=== PATIENT | female | born 1960 | race Caucasian/White ===

== ENCOUNTER → 2019-08-04 | Emergency (ER) | payer OTHER ==
[~2019-08-04] VITALS: Ht 160 cm; Wt 110.0 kg
[~2019-08-04] MED LIST: ACET-1059 PO; LIDOcaine 1% W/epiNEPHrine 1:100,000 20ml vial ONE; ondansetron/PF 4mg/2ml inj IV ONE; propofol 10mg/ml 20ml vial IV ONE
--- NOTE | 2019-08-04 15:35 | NUR ---
PAGED RT FOR MOD. SEDATION
--- NOTE | 2019-08-04 16:31 | NUR ---
Intra Moderate sedation: propofol 40mg given by Mode CHAPMAN at 1558 and as follows: propofol 20mg at 1600 propofol 10mg at 1601 propofol 10mg at 1602 propofol 20mg at 1604 propofol 20mg at 1605 propofol 10mg at 1606 propofol 20mg at 1607 propofol 30mg at 1608 propofol 20mg at 1610 propofol 30mg at 1617 1618: orthophotography technician at bedside propofol 40mg at 1619 propofol 30mg at 1620 propofol 30mg at 1625 1627 end of procedure
[2019-08-04 16:46] VITALS: BP 133/81
== END | disposition home or self-care (01) ==
LOC: ER 13:08
DX: S52.591A Other fractures of lower end of right radius, initial encounter for closed fracture (principal); F41.9 Anxiety disorder, unspecified; Z90.710 Acquired absence of both cervix and uterus; Z90.49 Acquired absence of other specified parts of digestive tract; Z88.0 Allergy status to penicillin; Z79.899 Other long term (current) drug therapy; W01.0XXA Fall on same level from slipping, tripping and stumbling without subsequent striking against object, initial encounter; Y93.89 Activity, other specified; Y92.89 Other specified places as the place of occurrence of the external cause; Y99.8 Other external cause status
CPT/HCPCS: 25605; 73100; 93005; 96374; 99152; 99153; 99285; J2405; 94760

== ENCOUNTER 2019-08-21 10:30 | Day surgery (SDC) | payer OTHER ==
[2019-08-21] VITALS (7 sets, daily range): BP systolic 118–152; BP diastolic 70–97
[~2019-08-21] VITALS: Ht 165.1 cm; Wt 118.6 kg
[~2019-08-21 10:30] MED LIST changes: -ACET-1059 PO; +LEVO150T61 PO; -LIDOcaine 1% W/epiNEPHrine 1:100,000 20ml vial ONE; +VENL-191 PO; +clindamycin 600mg/D5W 50ml 50 ML IV ONE; +famotidine 20mg tablet PO ONE; -ondansetron/PF 4mg/2ml inj IV ONE; -propofol 10mg/ml 20ml vial IV ONE; +ringers solution, lacted 1,000 ML IV SCH
[2019-08-21] MEDS ORDERED: ringers solution, lacted 1,000 ML IV SCH (11:14)
[2019-08-21] MEDS ORDERED: proCHLORperazine 10 MG/2 ml inj IV PRN (11:15)
[2019-08-21] MEDS ORDERED: morphine 4 MG/ML inj SYRINge IV PRN (11:15)
[2019-08-21] MEDS ORDERED: morphine 2 MG/ML inj. syringe IV PRN (11:15)
[2019-08-21] MEDS ORDERED: meperidine/PF 25mg/ml syringe IV PRN ×3 (11:15)
[2019-08-21] MEDS ORDERED: ondansetron/PF 4mg/2ml inj IV PRN (11:15)
[2019-08-21 12:11] LABS: BASOPHILS # (AUTO) 0.1 X10'3 (0-0.2); BASOPHILS % (AUTO) 0.9 % (0-1); EOSINOPHILS # (AUTO) 0.2 X10'3 (0-0.9); EOSINOPHILS % (AUTO) 2.5 % (0-6); LYMPHOCYTES # (AUTO) 2.1 X10'3 (1.1-4.8); LYMPHOCYTES % (AUTO) 32.8 % (21-51); MEAN CORPUSCULAR HEMOGLOBIN 29.8 PG (27.0-31.0); MEAN CORPUSCULAR HGB CONC 33.8 g/dL (33.0-36.5); MEAN CORPUSCULAR VOLUME 88.2 FL (78-98); MEAN PLATELET VOLUME 7.3 FL (7.4-10.4); MONOCYTES # (AUTO) 0.4 X10'3 (0-0.9); MONOCYTES % (AUTO) 6.1 % (2-12); NEUTROPHILS # (AUTO) 3.7 X10'3 (1.8-7.7); NEUTROPHILS % (AUTO) 57.7 % (42-75); PRE OP HEMATOCRIT 38.3 % (35.0-45.0); PRE OP PLATELET COUNT 402 X10'3 (140-440); RED BLOOD COUNT 4.34 X10'6 (4.20-5.60); RED CELL DISTRIBUTION WIDTH 13.6 % (11.5-14.5)
[2019-08-21] MEDS ORDERED: HYDROcodone/acetaminophen 5mg/325mg tablet PO ONE (12:15)
[2019-08-21 12:26] LABS: ALBUMIN 3.1 G/DL (3.4-5.0); ALBUMIN/GLOBULIN RATIO 0.9 (1.1-1.5); ALKALINE PHOSPHATASE 76 IU/L (46-116); BLOOD UREA NITROGEN 12 MG/DL (7-18); BUN/CREATININE RATIO 17.6 (6.6-38.0); CALCIUM 8.7 MG/DL (8.5-10.1); CHLORIDE 107 MMOL/L (99-107); CREATININE 0.68 MG/DL (0.40-0.90); PRE OP ALT 26 U/L (30-65); PRE OP ANION GAP 8 (8-16); PRE OP AST 17 U/L (10-37); PRE OP BILIRUB, TOTAL 0.3 MG/DL (0.0-1.0); PRE OP GLUCOSE 81 MG/DL (70-104); PRE OP POTASSIUM 3.9 MMOL/L (3.4-5.1); PRE OP SODIUM 142 MMOL/L (135-145); TOTAL CARBON DIOXIDE 27.5 MMOL/L (24-32); TOTAL PROTEIN 6.4 G/DL (6.4-8.2); eGFR 89 ML/MIN
[2019-08-21] MEDS ORDERED: BUPIVAcaine/PF 2.5 mg/ml (0.25%) 30ml vial ONE (12:56)
[2019-08-21] MEDS ORDERED: desflurane 240ml liquid inh. IH ONE (13:30)
[2019-08-21] MEDS ORDERED: ondansetron/PF 4mg/2ml inj ONE (13:30)
[2019-08-21] MEDS ORDERED: dexamethasone sod phosphate 10mg/ml inj ONE (13:30)
[2019-08-21] MEDS ORDERED: fentaNYL/PF 50MCG/1 ML 2ML syringe ONE (13:31)
[2019-08-21] MEDS ORDERED: midazolam 2 mg/2 ml injection ONE ×2 (13:31→13:32)
[2019-08-21] MEDS ORDERED: propofol inj 20 ML IV ONE (13:52)
[2019-08-21] MEDS ORDERED: LIDOcaine 2% (20mg/ml) 5ml vial ONE (13:52)
[2019-08-21] MEDS ORDERED: ROPIVAcaine 0.5% (5mg/ml) 30ml vial ONE (13:58)
--- NOTE | 2019-08-21 14:58 | NUR ---
RECEIVED FROM OR VIA [facility] ACCOMPANIED BY ANESTHESIOLOGIST DR FONTANEZ, REPORT GIVEN. PT DROWSY BUT AWAKENS EASILY AND DENIES PAIN AT THIS TIME. RUE DRESSING CDI, RUE ELEVATED AND ICE APPLIED. GOOD CAP REFILL, SKIN PINK AND WARM, 20 GAUGE PIV L WRIST PATENT AND RUNNING LR AT 100 ML/HR. RUE UNABLE TO MOVE DT AXILLARY BLOCK. RESTING COMFORTABLY
--- NOTE | 2019-08-21 15:58 | NUR ---
TOLERATING FLUIDS, ABLE TO WALK AND VOID, TOLERATING FLUIDS, VSS, 20 GAUGE PIV R WRIST DC/D CATH TIP INTACT. DISCHARGE INSTRUCTIONS GIVEN AND PT VERBALIZED UNDERSTANDING. TRANSPORTED VIA WHEELCHAIR TO DAUGHTER IN PRIVATE VEHICLE TO HOME.
== END 2019-08-21 15:58 | disposition home or self-care (01) ==
LOC: PAS 10:30
PROVIDERS: ATTEND Orthopaedic Surgery Hand Surgery
DX: S52.571A Other intraarticular fracture of lower end of right radius, initial encounter for closed fracture (principal); G56.01 Carpal tunnel syndrome, right upper limb; G89.18 Other acute postprocedural pain; G47.33 Obstructive sleep apnea (adult) (pediatric); F41.9 Anxiety disorder, unspecified; E66.9 Obesity, unspecified; Z68.41 Body mass index [BMI] 40.0-44.9, adult; Z88.0 Allergy status to penicillin; Z79.899 Other long term (current) drug therapy; Z90.710 Acquired absence of both cervix and uterus; Z98.84 Bariatric surgery status; Z98.890 Other specified postprocedural states; W01.0XXA Fall on same level from slipping, tripping and stumbling without subsequent striking against object, initial encounter; Y93.89 Activity, other specified; Y92.89 Other specified places as the place of occurrence of the external cause; Y99.8 Other external cause status
CPT/HCPCS: 25608; 36415; 64417; 64721; 80053; 82948; 85025; A6222; C1713; J1100; J2001; J2250; J2405; J2704; J3010; J3490; J7120; A4215; A4618; A6449; A7000; J2795

== ENCOUNTER 2021-02-06 14:37 | Emergency (ER) | payer BC, OTHER ==
[~2021-02-06] VITALS: Ht 165.1 cm; Wt 113.6 kg
[~2021-02-06 14:37] MED LIST changes: -clindamycin 600mg/D5W 50ml 50 ML IV ONE; -famotidine 20mg tablet PO ONE; -ringers solution, lacted 1,000 ML IV SCH
[2021-02-06 15:03] LABS: BASOPHILS # (AUTO) 0.1 X10'3 (0-0.2); BASOPHILS % (AUTO) 0.6 % (0-1); EOSINOPHILS # (AUTO) 0.1 X10'3 (0-0.9); EOSINOPHILS % (AUTO) 1.4 % (0-6); HEMATOCRIT 39.1 % (35.0-45.0); HEMOGLOBIN 13.2 g/dl (12.0-16.0); LYMPHOCYTES # (AUTO) 2.4 X10'3 (1.1-4.8); LYMPHOCYTES % (AUTO) 28.2 % (21-51); MEAN CORPUSCULAR HEMOGLOBIN 28.3 PG (27.0-31.0); MEAN CORPUSCULAR HGB CONC 33.6 g/dL (33.0-36.5); MEAN CORPUSCULAR VOLUME 84.3 FL (78-98); MEAN PLATELET VOLUME 7.6 FL (7.4-10.4); MONOCYTES # (AUTO) 0.6 X10'3 (0-0.9); MONOCYTES % (AUTO) 6.6 % (2-12); NEUTROPHILS # (AUTO) 5.3 X10'3 (1.8-7.7); NEUTROPHILS % (AUTO) 63.2 % (42-75); PLATELET COUNT 422 X10'3 (140-440); RED BLOOD COUNT 4.64 X10'6 (4.20-5.60); RED CELL DISTRIBUTION WIDTH 13.1 % (11.5-14.5); WHITE BLOOD COUNT 8.4 X10'3 (4.5-11.0)
[2021-02-06 15:18] LABS: ALANINE AMINOTRANSFERASE 34 U/L (12-78); ALBUMIN 3.4 G/DL (3.4-5.0); ALBUMIN/GLOBULIN RATIO 0.9 (1.1-1.5); ALKALINE PHOSPHATASE 109 IU/L (46-116); ANION GAP 10 (8-16); ASPARTATE AMINO TRANSFERASE 22 U/L (10-37); BILIRUBIN,TOTAL 0.3 MG/DL (0.1-1.0); BLOOD UREA NITROGEN 19 MG/DL (7-18); BUN/CREATININE RATIO 25.3 (6.6-38.0); CALCIUM 9.3 MG/DL (8.5-10.1); CHLORIDE 104 MMOL/L (99-107); CREATININE 0.75 MG/DL (0.40-0.90); GLUCOSE 154 MG/DL (70-104); POTASSIUM 4.1 MMOL/L (3.5-5.1); SODIUM 140 MMOL/L (135-145); TOTAL CARBON DIOXIDE 26.4 MMOL/L (24-32); TOTAL PROTEIN 7.3 G/DL (6.4-8.2); eGFR 79 ML/MIN
[2021-02-06 16:08] LABS: LIPASE 64 U/L (73-393)
[2021-02-06 17:50] LABS: MAGNESIUM 2.2 MG/DL (1.5-2.4)
[2021-02-06 17:57] VITALS: BP 145/88
[2021-02-06] MEDS ORDERED: LIDOcaine Viscous 15ml cup MM ONE (18:05)
[2021-02-06] MEDS ORDERED: sucralfate 1gm/10ml UD suspension PO STA (18:05)
[2021-02-06] MEDS ORDERED: mag hydrox/Alum hydrox/simeth 30ml oral suspension PO ONE (18:05)
[2021-02-06] MEDS ORDERED: SUCR1TAB34 PO (18:09)
== END 2021-02-06 18:22 | disposition home or self-care (01) ==
LOC: ER 14:38
DX: R07.89 Other chest pain (principal); K21.9 Gastro-esophageal reflux disease without esophagitis; Z88.0 Allergy status to penicillin; Z79.899 Other long term (current) drug therapy; Z90.710 Acquired absence of both cervix and uterus; Z98.84 Bariatric surgery status
CPT/HCPCS: 36415; 71045; 80053; 83690; 83735; 83880; 84484; 85025; 93005; 99285

== ENCOUNTER 2022-07-10 08:15 | Inpatient (IN) | payer BC ==
[2022-07-02 12:33] LABS: BASOPHILS % (AUTO) 0.5 % (0-1); EOSINOPHILS # (AUTO) 0.1 X10'3 (0-0.9); EOSINOPHILS % (AUTO) 0.7 % (0-6); MEAN CORPUSCULAR HEMOGLOBIN 29.4 PG (27.0-31.0); MEAN CORPUSCULAR HGB CONC 33.6 g/dL (33.0-36.5); MEAN CORPUSCULAR VOLUME 87.6 FL (78-98); MEAN PLATELET VOLUME 7.4 FL (7.4-10.4); MONOCYTES # (AUTO) 0.5 X10'3 (0-0.9); MONOCYTES % (AUTO) 6.7 % (2-12); NEUTROPHILS % (AUTO) 66.1 % (42-75); PRE OP HEMATOCRIT 43.1 % (35.0-45.0); PRE OP HEMOGLOBIN 14.5 g/dL (12.0-16.0); PRE OP PLATELET COUNT 359 X10'3 (140-440); RED BLOOD COUNT 4.92 X10'6 (4.20-5.60); RED CELL DISTRIBUTION WIDTH 14.3 % (11.5-14.5)
[2022-07-02 12:38] LABS: PRE OP PROTIME 10.4 SECONDS (9.0-12.0)
[2022-07-02 12:48] LABS: ALBUMIN 3.4 G/DL (3.4-5.0); ALBUMIN/GLOBULIN RATIO 0.9 (1.1-1.5); ALKALINE PHOSPHATASE 90 IU/L (46-116); BLOOD UREA NITROGEN 14 MG/DL (7-18); CALCIUM 9.4 MG/DL (8.5-10.1); CHLORIDE 104 MMOL/L (99-107); CREATININE 0.61 MG/DL (0.40-0.90); PRE OP ALT 33 U/L (30-65); PRE OP ANION GAP 9 (8-16); PRE OP AST 24 U/L (10-37); PRE OP BILIRUB, TOTAL 0.3 MG/DL (0.0-1.0); PRE OP GLUCOSE 89 MG/DL (70-104); PRE OP POTASSIUM 4.4 MMOL/L (3.4-5.1); PRE OP SODIUM 137 MMOL/L (135-145); TOTAL CARBON DIOXIDE 24.3 MMOL/L (24-32); eGFR > 90 ML/MIN
[~2022-07-10] VITALS: Ht 165.1 cm; Wt 98.2 kg
[2022-07-10] VITALS (25 sets, daily range): BP systolic 107–146; BP diastolic 58–115
[~2022-07-10 08:15] MED LIST changes: +ACET-2971 PO; +CHOL100025 PO; +CRAN500T4 PO; +MELA10TA2 PO; +MULT-1085 PO; +OMEP20CA16 PO; +PRAV20TA4 PO; +SEMA0.253 SQ; +UBID10CA4 PO; -VENL-191 PO; +VENL150C58 PO; +VENL37.589 PO; +cefazolin 2gm/D5W 100mL 100 ML IV ONE; +famotidine 20mg tablet PO ONE; +ringers solution, lacted 1,000 ML IV SCH; +tranexamic acid inj. 1,000 MG in normal saline 100ml IV soln 90 ML IV ONE
--- NOTE | 2022-07-10 10:15 | NUR ---
PT BLOOD SUGAR IS 62. ANESTHESIA NOTIFIED, NO NEW ORDERS RECEIVED AT THIS TIME. PT IS ASYMPTOMATIC AND WILL RECEIVE MEDS IN OR THAT WILL HELP INCREASE BLOOD SUGAR PER ANESTHESIA. WILL CONTINUE TO ASSESS.
[2022-07-10] MEDS ORDERED: vancomycin 1,000mg inj ONE (10:24)
[2022-07-10] MEDS ORDERED: diphenhydrAMINE 25mg capsule PO PRN (10:40)
[2022-07-10] MEDS ORDERED: naloxone 0.4 mg/ml inj IV PRN (10:40)
[2022-07-10] MEDS ORDERED: acetaminophen 325mg tablet PO PRN (10:40)
[2022-07-10] MEDS ORDERED: ondansetron/PF 4mg/2ml inj IV PRN ×2 (10:40→11:55)
[2022-07-10] MEDS ORDERED: fentaNYL/PF 50MCG/1 ML 2ML syringe ONE (10:57)
[2022-07-10] MEDS ORDERED: midazolam 1 mg/ML 2ml injection ONE ×2 (10:57→10:58)
[2022-07-10] MEDS ORDERED: succinylcholine 20mg/ml inj IV ONE (10:58)
[2022-07-10] MEDS ORDERED: ROPIVAcaine 0.5% (5mg/ml) 30ml vial ONE (10:58)
[2022-07-10] MEDS ORDERED: propofol inj 20 ML IV ONE (10:58)
[2022-07-10] MEDS ORDERED: LIDOcaine 2% (20mg/ml) 5ml vial ONE (10:58)
[2022-07-10] MEDS ORDERED: acetaminophen 1,000mg/100ml IV 100 ML IV ONE (11:19)
[2022-07-10] MEDS ORDERED: ondansetron/PF 4mg/2ml inj ONE (11:19)
[2022-07-10] MEDS ORDERED: dexamethasone sod phosphate 4mg/ml inj. ONE (11:24)
[2022-07-10] MEDS ORDERED: methylene blue (5mg/ml) 50mg/10ml ampul IV ONE (11:38)
--- NOTE | 2022-07-10 11:43 | NUR ---
[facility] NOTE: PT STATES SHE SHOWERED X5 WITH HIBICLENS AND DID NOT USE MUPIROCIN OINTMENT D/T NOT BEING ORDERED. PT HAS STRONG BILAT PALPABLE RADIAL PULSES. PT DID NOT WATCH VIDEO BUT READ HANDOUT/BOOKLET. PT EDUCATED ON USE OF IS WITH RETURN DEMONSTRATION PERFORMED.
[2022-07-10] MEDS ORDERED: hydrALAZINE 20mg/ml inj. IV PRN (11:55)
[2022-07-10] MEDS ORDERED: morphine 2 MG/ML inj. syringe IV PRN (11:55)
[2022-07-10] MEDS ORDERED: morphine 4 MG/ML inj SYRINge IV PRN (11:55)
[2022-07-10] MEDS ORDERED: ringers solution, lacted 1,000 ML IV SCH (11:55)
[2022-07-10] MEDS ORDERED: fentaNYL/PF 50MCG/1 ML 2ML syringe IV PRN ×2 (11:55)
[2022-07-10] MEDS ORDERED: labetalol 20mg/4ml (5mg/ml) syringe IV PRN (11:55)
[2022-07-10] MEDS: cefazolin 2gm/D5W 100mL 100 ML IV SCH (18:06)
--- NOTE | 2022-07-10 18:53 | NUR ---
PATIENT TAKEN TO ICU A MED SURG PATIENT FLOOR ROOM WITH ALL BELONGINGS AND HOOKED UP TO ALL MONITORS IN ROOM AND REPORT GIVEN TO RN WHO HAS TAKEN OVER PATIENT CARE. Addendum: 07/10/22 at 7 by Gini Wynn RN Amended: Links added.
--- NOTE | 2022-07-10 19:00 | NUR ---
received pt. from PACU with JENNA Rubalcava via wheel chair. GCS 15, on room air. s/p left shoulder arthroplasty w/sling attached. 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
[2022-07-10] MEDS: oxyCODONE IR 5mg (immed. release) tablet PO PRN (20:35)
[2022-07-10] MEDS: potassium cl 20mEq in 1/2 NS 1,000 ML IV SCH (20:46)
[2022-07-10] MEDS ORDERED: cholecalciferol (vitamin D3) 1,000 unit (25mcg) tablet PO SCH (21:26)
[2022-07-10] MEDS ORDERED: venlafaxine XR 37.5mg cap (Q24H) PO SCH (21:26)
[2022-07-10] MEDS ORDERED: multivitamins, therapeutics tablet PO SCH (21:28)
[2022-07-10] MEDS ORDERED: Melatonin 3mg tablet PO SCH (21:28)
[2022-07-10] MEDS ORDERED: venlafaxine XR 75mg capsule (Q24H) PO SCH (21:34)
[2022-07-11] VITALS (9 sets, daily range): BP systolic 113–149; BP diastolic 66–79
[2022-07-11] MEDS: cefazolin 2gm/D5W 100mL 100 ML IV SCH (00:52)
--- NOTE | 2022-07-11 00:55 | NUR ---
left arm sensation present, able to move fingers
[2022-07-11] MEDS: oxyCODONE IR 5mg (immed. release) tablet PO PRN ×2 (01:31→11:09)
[2022-07-11] MEDS: potassium cl 20mEq in 1/2 NS 1,000 ML IV SCH (02:20)
[2022-07-11 05:51] LABS: BASOPHILS % (AUTO) 0.3 % (0-1); EOSINOPHILS % (AUTO) 0.1 % (0-6); HEMOGLOBIN 12.3 g/dl (12.0-16.0); LYMPHOCYTES % (AUTO) 21.8 % (21-51); MEAN CORPUSCULAR HEMOGLOBIN 29.2 PG (27.0-31.0); MEAN CORPUSCULAR HGB CONC 33.3 g/dL (33.0-36.5); MEAN CORPUSCULAR VOLUME 87.8 FL (78-98); MEAN PLATELET VOLUME 7.7 FL (7.4-10.4); MONOCYTES # (AUTO) 0.8 X10'3 (0-0.9); MONOCYTES % (AUTO) 9.2 % (2-12); NEUTROPHILS # (AUTO) 6.2 X10'3 (1.8-7.7); NEUTROPHILS % (AUTO) 68.6 % (42-75); PLATELET COUNT 337 X10'3 (140-440); RED BLOOD COUNT 4.21 X10'6 (4.20-5.60); RED CELL DISTRIBUTION WIDTH 14.1 % (11.5-14.5); WHITE BLOOD COUNT 9.1 X10'3 (4.5-11.0)
[2022-07-11 05:52] LABS: ANION GAP 11 (8-16); CHLORIDE 105 MMOL/L (99-107); POTASSIUM 3.6 MMOL/L (3.5-5.1); SODIUM 141 MMOL/L (135-145); TOTAL CARBON DIOXIDE 25.4 MMOL/L (24-32)
--- NOTE | 2022-07-11 06:17 | NUR ---
Problems reprioritized. Patient report given, questions answered & plan of care reviewed with JENNA Ellison.
[2022-07-11] MEDS ORDERED: levoTHYROXINE 75mcg tablet PO SCH (07:00)
[2022-07-11] MEDS ORDERED: pantoprazole 40mg Tablet.DR PO SCH (07:30)
[2022-07-11] MEDS ORDERED: atorvastatin 10mg tablet PO SCH (08:00)
--- NOTE | 2022-07-11 10:55 | NUR ---
Per EMR pt POD #1 s/p reverse left TSA. Pt seen at bedside provided with written and verbal protein education with recommendation for ONS PRN following discharge and ONS coupons. Pt states she's been taking Wegovy for about six weeks now with 15 lb wt loss though states she didn't take it prior to OR and reports usually a protein bar for breakfast (180 kcal, 15 g protein), a decent lunch, and little to no dinner (sometimes salad and fruit). RD encouraged pt to increase nutrient intake for wound healing and d/w prescribing provider when to resume Wegovy. Pt verbalized understanding. All questions were answered at this time. Pt endorses a good appetite and denies food allergies though reports disliking red meat and cottage cheese, d/w dietary. Pt requests yogurt WL today, d/w dietary. Pt denies any difficulty chewing or swallowing. RD contact information provided and pt encouraged to reach out if needed. Will remain available. Addendum: 07/11/22 at [address] Amended: Links added.
[2022-07-11] MEDS ORDERED: OXYC-658 PO ×2 (12:49)
[2022-07-11] MEDS ORDERED: ENOX40DI8 SQ (12:52)
--- NOTE | 2022-07-11 13:08 | NUR ---
Pt iv removed prior to discharge. All questions/concerns answered at bedside prior to discharge. Pt taken to front of hospital via wheelchair and niece was there to transport pt home. All belongings accounted for.
[2022-07-11] MEDS ORDERED: OXYC-145 PO (13:12)
[2022-07-11] MEDS ORDERED: non-formulary drug (Cranberry Extract (Cranberry) 1 TAB) PO SCH (21:00)
[2022-07-11] MEDS ORDERED: non-formulary drug (Acetaminophen (Tylenol Arthritis) 2 TAB) PO SCH (21:00)
[2022-07-16] MEDS ORDERED: SEMAGLUTIDE SQ SCH (09:00)
== END 2022-07-11 13:30 | disposition home or self-care (01) | DRG 483 ==
LOC: PAS IN 08:15 → ICU 2S 18:45
PROVIDERS: ADMIT Specialist; ATTEND Specialist
PROC: 5A09357 Assistance with Respiratory Ventilation, Less than 24 Consecutive Hours, Continuous Positive Airway Pressure (ICD-10-PCS; 2022-07-10)
PROC: 3E0T3BZ Introduction of Anesthetic Agent into Peripheral Nerves and Plexi, Percutaneous Approach (ICD-10-PCS; 2022-07-10)
PROC: 3E0T33Z Introduction of Anti-inflammatory into Peripheral Nerves and Plexi, Percutaneous Approach (ICD-10-PCS; 2022-07-10)
PROC: 0RRK00Z Replacement of Left Shoulder Joint with Reverse Ball and Socket Synthetic Substitute, Open Approach (ICD-10-PCS; principal; 2022-07-10 10:52)
DX: M19.012 Primary osteoarthritis, left shoulder (principal); E03.9 Hypothyroidism, unspecified; F41.9 Anxiety disorder, unspecified; E78.5 Hyperlipidemia, unspecified; Z87.11 Personal history of peptic ulcer disease; Z79.899 Other long term (current) drug therapy
CPT/HCPCS: 36415; 71046; 73030; 76000; 80051; 80053; 82948; 84443; 85025; 85610; 85730; 86885; 86900; 86901; 87081; 93005; 97110; 97161; 97530; A4618; A6213; A6449; A6455; A7000; C1776; G0378; J0131; J0330; J0690; J1100; J2250; J2405; J2704; J2795; J3010; J3370; J3480; J3490; J7120; Q9968

== ENCOUNTER 2023-02-12 10:51 | Emergency (ER) | payer BC ==
[~2023-02-12] VITALS: Ht 165.1 cm; Wt 113.6 kg
[~2023-02-12 10:51] MED LIST changes: +ENOX40DI8 SQ; +OXYC-145 PO; -cefazolin 2gm/D5W 100mL 100 ML IV ONE; -famotidine 20mg tablet PO ONE; -ringers solution, lacted 1,000 ML IV SCH; -tranexamic acid inj. 1,000 MG in normal saline 100ml IV soln 90 ML IV ONE
[2023-02-12] MEDS ORDERED: iohexol 300mg/ml 100ml inj. ONE (11:43)
[2023-02-12 12:23] LABS: BASOPHILS % (AUTO) 0.3 % (0-1); EOSINOPHILS % (AUTO) 0.3 % (0-6); HEMATOCRIT 46.5 % (35.0-45.0); LYMPHOCYTES # (AUTO) 1.2 X10'3 (1.1-4.8); LYMPHOCYTES % (AUTO) 8.9 % (21-51); MEAN CORPUSCULAR HEMOGLOBIN 27.3 PG (27.0-31.0); MEAN CORPUSCULAR HGB CONC 32.2 g/dL (33.0-36.5); MEAN CORPUSCULAR VOLUME 84.8 FL (78-98); MEAN PLATELET VOLUME 7.7 FL (7.4-10.4); MONOCYTES % (AUTO) 7.8 % (2-12); NEUTROPHILS % (AUTO) 82.7 % (42-75); PLATELET COUNT 392 X10'3 (140-440); RED BLOOD COUNT 5.49 X10'6 (4.20-5.60); RED CELL DISTRIBUTION WIDTH 16.1 % (11.5-14.5); WHITE BLOOD COUNT 13.3 X10'3 (4.5-11.0)
[2023-02-12 12:29] LABS: APTT 28 SECONDS (22-32); INR 0.9 INR; PROTHROMBIN TIME 10.1 SECONDS (9.0-12.0)
[2023-02-12 12:30] LABS: ALANINE AMINOTRANSFERASE 33 U/L (12-78); ALBUMIN 3.6 G/DL (3.4-5.0); ALBUMIN/GLOBULIN RATIO 0.8 (1.1-1.5); ALKALINE PHOSPHATASE 128 IU/L (46-116); ANION GAP 8 (8-16); ASPARTATE AMINO TRANSFERASE 31 U/L (10-37); BILIRUBIN,TOTAL 0.2 MG/DL (0.1-1.0); BLOOD UREA NITROGEN 16 MG/DL (7-18); BUN/CREATININE RATIO 24.6 (10.0-20.0); CALCIUM 9.9 MG/DL (8.5-10.1); CHLORIDE 103 MMOL/L (99-107); CREATININE 0.65 MG/DL (0.40-0.90); GLUCOSE 95 MG/DL (70-104); MAGNESIUM 2.1 MG/DL (1.5-2.4); POTASSIUM 4.3 MMOL/L (3.5-5.1); SODIUM 138 MMOL/L (135-145); TOTAL CARBON DIOXIDE 27.2 MMOL/L (24-32); TOTAL PROTEIN 7.9 G/DL (6.4-8.2); eCRCL 82 ML/MIN; eGFR > 90 ML/MIN
[2023-02-12 14:33] VITALS: BP 141/79; PULSE 108; RESP 20; TEMP 97.9; O2SAT 98
[2023-02-12] MEDS ORDERED: normal saline 1000ML IV soln IVB ONE (15:50)
[2023-02-12] MEDS ORDERED: CefTRIAXone 2gm/D5W 50ml BAG 50 ML IV ONE (15:50)
[2023-02-12] MEDS ORDERED: METR-159 PO (16:22)
[2023-02-12] MEDS ORDERED: LEVO-65 PO (16:22)
[2023-02-12] MEDS ORDERED: acetaminophen 325mg tablet PO ONE (17:35)
== END 2023-02-12 18:05 | disposition home or self-care (01) ==
LOC: ER 10:51
DX: K52.9 Noninfective gastroenteritis and colitis, unspecified (principal); R10.30 Lower abdominal pain, unspecified; Z90.710 Acquired absence of both cervix and uterus; Z98.84 Bariatric surgery status; Z88.0 Allergy status to penicillin; Z79.2 Long term (current) use of antibiotics; Z79.899 Other long term (current) drug therapy
CPT/HCPCS: 36415; 74177; 80053; 83735; 85025; 85610; 85730; 96365; 99285; J0696; J3490; J7030; Q9967

== ENCOUNTER 2024-11-23 11:21 | Outpatient (CLI) | payer BC ==
[~2024-11-23 11:21] MED LIST changes: +PRAV20TA17 PO; -PRAV20TA4 PO
--- NOTE | 2024-11-23 12:34 | RADIOLOGY REPORT ---
CLINICAL INDICATION: STATUS POST FALL;LT. KNEE TECHNIQUE: 4 radiographic views of the left knee were obtained. Comparison: None FINDINGS/IMPRESSION: There is no evidence of acute fracture or dislocation. Moderate tricompartmental knee joint osteoarthrosis.
--- NOTE | 2024-11-23 12:34 | RADIOLOGY REPORT ---
CLINICAL INDICATION: Pain; trauma TECHNIQUE: 2 radiographic views of the left tibia/fibula were obtained. Comparison: None FINDINGS/IMPRESSION: There is no evidence of acute fracture or dislocation. The visualized joint space is well maintained. The alignment is anatomical. There is no radiopaque foreign body.
== END 2024-11-23 23:59 | disposition home or self-care (01) ==
LOC: RAD 11:21
PROVIDERS: ATTEND Nurse Practitioner Family
DX: M17.12 Unilateral primary osteoarthritis, left knee (principal); Z91.81 History of falling
CPT/HCPCS: 73562; 73590